=== PATIENT | male | born 1930 | race Caucasian/White ===

== ENCOUNTER → 2017-07-13 | Outpatient (REF) ==
[2017-07-13 15:41] LABS: THYROID STIMULATING HORMONE 2.97 uIU/mL (0.465-4.680)
== END ==
LOC: ZLAB.WCH 14:12
PROVIDERS: Family Medicine
DX: Z01.89 Encounter for other specified special examinations (principal)

== ENCOUNTER → 2017-09-05 | Outpatient (REF) | LOC: ZLAB.WCH 18:04 | DX: Z01.89 Encounter for other specified special examinations (principal) ==

== ENCOUNTER 2017-09-26 22:37 | Inpatient (IN) | payer MEDICARE ==
[~2017-09-26] VITALS: Ht 180.3 cm; Wt 111.2 kg
[2017-09-26 23:01] LABS: BASO # 0.1 (0.0-0.2); BASO % 0.8 % (0.0-2.0); EOS # 0.4 (0.0-0.7); GRAN # 4.5 (1.4-6.5); HEMATOCRIT 41.2 % (42.0-52.0); HEMOGLOBIN 13.2 g/dl (13.5-18.0); LYMPH # 1.8 (1.2-3.4); LYMPH % 24.6 % (20.0-51.0); MEAN CELL VOLUME 95 fl (80.0-100.0); MEAN CORPUSCULAR HEMOGLOBIN 30 pg (27.0-31.0); MEAN CORPUSCULAR HGB CONC 32 g/dl (33.0-37.0); MEAN PLATELET VOLUME 11.5 fl (7.4-10.4); MONO # 0.5 (0.1-0.6); MONO % 7.5 % (1.7-9.3); PLATELET COUNT 168 K/mm3 (130-400); RED BLOOD COUNT 4.36 M/mm3 (4.20-5.60); REDCELL DISTRIBUTION WIDTH-CV 15.2 % (11.5-14.5)
[2017-09-26 23:07] LABS: INR 1.2 (0.8-3.0); PROTHROMBIN TIME 14.2 SECONDS (9.7-12.8)
[2017-09-26 23:10] LABS: PARTIAL THROMBOPLASTIN TIME 29.3 SECONDS (26.0-37.0)
[2017-09-26 23:13] LABS: ALBUMIN 3.9 gm/dL (3.5-5.0); BILIRUBIN,TOTAL 0.5 mg/dL (0.0-1.0); CALCIUM 8.8 mg/dL (8.4-10.2); CREATININE, serum 1.74 mg/dL (0.66-1.25); POTASSIUM 4.2 mmol/L (3.4-5.0); TOTAL PROTEIN 7.4 gm/dL (6.4-8.2)
[2017-09-26] MEDS ORDERED: ASPIRIN 81M81 MG/TA2 PO (23:13)
[2017-09-26] MEDS ORDERED: LIPITOR 40MG TA40 MG PO (23:13)
[2017-09-26] MEDS ORDERED: LASIX 20MG TABL20 MG PO (23:14)
[2017-09-26] MEDS ORDERED: COZAAR 50MG50 MG/TAB PO (23:14)
[2017-09-26] MEDS ORDERED: IMDUR 30MG30 MG/TAB PO (23:14)
[2017-09-26] MEDS ORDERED: FLOMAX 0.40.4 MG/CAP PO (23:15)
[2017-09-26] MEDS ORDERED: TIROSINT50 MC1 PO (23:15)
[2017-09-26] MEDS ORDERED: MYSOLINE 5050 MG/TAB PO (23:15)
[2017-09-26] MEDS ORDERED: COUMADIN 77.5 MG/TAB PO (23:19)
[2017-09-26] MEDS ORDERED: COUMADIN 5MG5 MG/TAB PO (23:20)
[2017-09-26 23:28] LABS: TROPONIN-I 0.241 ng/mL (0.000-0.034)
[2017-09-27] VITALS (488 sets, daily range): BP systolic 111–202; BP diastolic 58–85; PULSE 51–91; TEMP 96.8–98.5; O2SAT 81–100
[2017-09-27 05:29] LABS: BASO # 0.1 (0.0-0.2); BASO % 0.7 % (0.0-2.0); EOS # 0.4 (0.0-0.7); GRAN # 4.3 (1.4-6.5); GRAN % 61.1 % (42.2-75.2); HEMATOCRIT 37.2 % (42.0-52.0); LYMPH # 1.7 (1.2-3.4); MEAN CELL VOLUME 95 fl (80.0-100.0); MEAN CORPUSCULAR HEMOGLOBIN 30 pg (27.0-31.0); MEAN CORPUSCULAR HGB CONC 32 g/dl (33.0-37.0); MEAN PLATELET VOLUME 11.2 fl (7.4-10.4); MONO # 0.6 (0.1-0.6); MONO % 8.8 % (1.7-9.3); PLATELET COUNT 149 K/mm3 (130-400); RED BLOOD COUNT 3.91 M/mm3 (4.20-5.60); REDCELL DISTRIBUTION WIDTH-CV 15.4 % (11.5-14.5)
[2017-09-27 05:36] LABS: HEMOGLOBIN 11.9 g/dl (13.5-18.0)
[2017-09-27 05:46] LABS: CALCIUM 8.6 mg/dL (8.4-10.2); CHOLESTEROL RISK RATIO 4.4; CREATININE, serum 1.72 mg/dL (0.66-1.25); POTASSIUM 3.9 mmol/L (3.4-5.0)
[2017-09-27 06:07] LABS: TROPONIN-I 6 HR POST INITIAL 0.308 ng/mL (0.000-0.034)
[2017-09-27 06:15] LABS: THYROID STIMULATING HORMONE 4.31 uIU/mL (0.465-4.680)
[2017-09-27 20:24] LABS: CREATININE, serum 1.85 mg/dL (0.66-1.25)
[2017-09-27 20:39] LABS: FRACTIONAL EXCRETION OF NA+ 0.1 %
[2017-09-28 02:28] LABS: FOLATE (FOLIC ACID) 6.7 ng/mL (7.0-31.4)
[2017-09-28 05:09] VITALS: BP 155/60; PULSE 54; TEMP 97.8
[2017-09-28 06:43] LABS: BASO # 0.1 (0.0-0.2); BASO % 0.6 % (0.0-2.0); EOS # 0.4 (0.0-0.7); EOS % 4.3 % (0-4.0); GRAN # 4.9 (1.4-6.5); GRAN % 58.5 % (42.2-75.2); LYMPH # 2.3 (1.2-3.4); LYMPH % 27.5 % (20.0-51.0); MEAN CELL VOLUME 95 fl (80.0-100.0); MEAN CORPUSCULAR HGB CONC 32 g/dl (33.0-37.0); MEAN PLATELET VOLUME 11.6 fl (7.4-10.4); MONO # 0.7 (0.1-0.6); MONO % 8.6 % (1.7-9.3); PLATELET COUNT 152 K/mm3 (130-400); RED BLOOD COUNT 3.84 M/mm3 (4.20-5.60); REDCELL DISTRIBUTION WIDTH-CV 15.3 % (11.5-14.5)
[2017-09-28 06:48] LABS: HEMATOCRIT 36.6 % (42.0-52.0); HEMOGLOBIN 11.6 g/dl (13.5-18.0); MEAN CORPUSCULAR HEMOGLOBIN 30 pg (27.0-31.0)
[2017-09-28 07:01] LABS: CALCIUM 8.5 mg/dL (8.4-10.2); CREATININE, serum 1.73 mg/dL (0.66-1.25); PHOSPHOROUS 3.1 mg/dL (2.5-4.5); POTASSIUM 4.4 mmol/L (3.4-5.0)
[2017-09-28 07:16] VITALS: BP 138/66; PULSE 55; TEMP 98.2
[2017-09-28 08:49] LABS: INR 1.6 (0.8-3.0); PROTHROMBIN TIME 18.4 SECONDS (9.7-12.8)
[2017-09-28 12:05] VITALS: BP 146/77; PULSE 58; TEMP 98.1
[2017-09-28 15:39] VITALS: BP 137/61; PULSE 64; TEMP 98.7
[2017-09-28 20:33] VITALS: BP 156/66; PULSE 62; TEMP 98
[2017-09-29] VITALS (12 sets, daily range): BP systolic 116–158; BP diastolic 52–90; PULSE 50–64; TEMP 97.8–98.9
[2017-09-29 07:24] LABS: BASO # 0.1 (0.0-0.2); BASO % 0.7 % (0.0-2.0); EOS # 0.4 (0.0-0.7); EOS % 5.6 % (0-4.0); GRAN # 3.4 (1.4-6.5); GRAN % 48.8 % (42.2-75.2); LYMPH # 2.4 (1.2-3.4); LYMPH % 34.3 % (20.0-51.0); MEAN CELL VOLUME 94 fl (80.0-100.0); MEAN CORPUSCULAR HGB CONC 32 g/dl (33.0-37.0); MEAN PLATELET VOLUME 11.7 fl (7.4-10.4); MONO # 0.7 (0.1-0.6); MONO % 10.3 % (1.7-9.3); PLATELET COUNT 150 K/mm3 (130-400); RED BLOOD COUNT 3.79 M/mm3 (4.20-5.60); REDCELL DISTRIBUTION WIDTH-CV 15.3 % (11.5-14.5)
[2017-09-29 07:25] LABS: HEMATOCRIT 35.6 % (42.0-52.0); HEMOGLOBIN 11.5 g/dl (13.5-18.0); MEAN CORPUSCULAR HEMOGLOBIN 30 pg (27.0-31.0)
[2017-09-29 07:30] LABS: INR 1.8 (0.8-3.0); PROTHROMBIN TIME 21.5 SECONDS (9.7-12.8)
[2017-09-29 07:33] LABS: CALCIUM 8.6 mg/dL (8.4-10.2); CREATININE, serum 1.71 mg/dL (0.66-1.25); POTASSIUM 4.1 mmol/L (3.4-5.0)
[2017-09-30 05:11] VITALS: BP 155/73; PULSE 105; PULSE 53; TEMP 98.6
[2017-09-30 06:45] LABS: MEAN CELL VOLUME 95 fl (80.0-100.0); MEAN CORPUSCULAR HGB CONC 32 g/dl (33.0-37.0); MEAN PLATELET VOLUME 11.5 fl (7.4-10.4); PLATELET COUNT 149 K/mm3 (130-400); RED BLOOD COUNT 3.84 M/mm3 (4.20-5.60); REDCELL DISTRIBUTION WIDTH-CV 15.1 % (11.5-14.5)
[2017-09-30 06:48] LABS: HEMATOCRIT 36.3 % (42.0-52.0); HEMOGLOBIN 11.7 g/dl (13.5-18.0); MEAN CORPUSCULAR HEMOGLOBIN 30 pg (27.0-31.0)
[2017-09-30 06:58] LABS: INR 1.9 (0.8-3.0); PROTHROMBIN TIME 22.7 SECONDS (9.7-12.8)
[2017-09-30 07:30] VITALS: BP 153/71; PULSE 51; TEMP 98.6
[2017-09-30 11:44] VITALS: BP 129/67; PULSE 51; TEMP 97.4
[2017-09-30 15:59] VITALS: BP 128/55; PULSE 84; TEMP 98.8
[2017-09-30 20:08] VITALS: BP 134/62; PULSE 51; TEMP 98
[2017-09-30 23:46] VITALS: BP 120/86; PULSE 122; PULSE 54; TEMP 97.3
[2017-10-01 03:40] VITALS: BP 134/60; PULSE 55; TEMP 97.8
[2017-10-01 08:58] VITALS: BP 129/42; BP 173/79; PULSE 53; PULSE 76; TEMP 98.3
[2017-10-01 09:00] LABS: INR 2.1 (0.8-3.0); PROTHROMBIN TIME 24.2 SECONDS (9.7-12.8)
[2017-10-01 12:32] VITALS: BP 130/59; PULSE 52; TEMP 98.4
[2017-10-01 17:00] VITALS: BP 130/53; PULSE 62; TEMP 98.5
[2017-10-01 20:09] VITALS: BP 156/75; PULSE 52; TEMP 98.7
[2017-10-01 23:49] VITALS: BP 155/53; PULSE 49; TEMP 97.8
[2017-10-02 04:17] VITALS: BP 150/83; PULSE 58; TEMP 98.7
[2017-10-02 07:09] LABS: INR 2.2 (0.8-3.0); PROTHROMBIN TIME 25.7 SECONDS (9.7-12.8)
[2017-10-02 07:39] VITALS: BP 140/61; PULSE 59; TEMP 98
[2017-10-02] MEDS ORDERED: TOPROL XL 50MG50 MG PO (08:38)
[2017-10-02] MEDS ORDERED: NORVASC 10MG10 MG PO (08:38)
[2017-10-02] MEDS ORDERED: FOLIC ACID 11 MG/TA1 PO (08:39)
[2017-10-02 10:02] VITALS: BP 140/61; PULSE 59; TEMP 98
== END 2017-10-02 11:24 | DRG 281 ==
LOC: COL.ER 22:37 → ICU 09-27 00:07 → MEDICAL 09-27 17:50
PROVIDERS: Emergency Medicine; Family Medicine; Internal Medicine; Internal Medicine Cardiovascular Disease; Physician Assistant
DX: I21.4 Non-ST elevation (NSTEMI) myocardial infarction (principal); D68.51 Activated protein C resistance; Z66 Do not resuscitate; I12.9 Hypertensive chronic kidney disease with stage 1 through stage 4 chronic kidney disease, or unspecified chronic kidney disease; N18.9 Chronic kidney disease, unspecified; I25.10 Atherosclerotic heart disease of native coronary artery without angina pectoris; F03.90 Unspecified dementia, unspecified severity, without behavioral disturbance, psychotic disturbance, mood disturbance, and anxiety; Z79.01 Long term (current) use of anticoagulants
CPT/HCPCS: 99222-AI; 99232-AI; 99233-AI; J1644; J2270